=== PATIENT | male | born 1990 | race Caucasian/White ===

== ENCOUNTER 2025-01-01 03:13 | Emergency (ER) | payer BC, SELFPAY ==
[2025-01-01 03:15] VITALS: BP 145/104
[2025-01-01 03:34] VITALS: BMI 28.1
[2025-01-01 03:56] LABS: % Basophils 0.8 % (0-2); % Eosinophils 2.5 % (0-6); % Immature Granulocytes 0.3 % (0-0.5); % Lymphocytes 29.5 % (20.5-51.1); % Monocytes 9.3 % (1.7-9.3); % Neutrophils 57.6 % (42.2-75.2); Absolute Basophils 0.1 10^3/uL (0-0.2); Absolute Eosinophils 0.2 10^3/uL (0-0.7); Absolute Lymphocytes 1.8 10^3/uL (1.2-3.4); Absolute Monocytes 0.6 10^3/uL (0.1-0.6); Absolute Neutrophils 3.5 10^3/uL (1.4-6.5); Hematocrit 44.4 % (39.0-52.0); Hemoglobin 16.3 g/dL (13.0-18.0); Mean Corp Hgb Conc. 36.7 g/dL (33.0-37.0); Mean Corpuscular Hgb 30.9 pg (27.0-31.0); Mean Corpuscular Volume 84.1 fL (80.0-94.0); Mean Platelet Volume 8.8 fL (7.4-10.4); Nucleated Red Blood Cells % 0 % (-); Platelet Count 227 10^3/uL (130-400); Red Blood Cell Count 5.28 10^6/uL (4.70-6.10); Red Cell Dist. Width 11.3 % (11.5-14.5); White Blood Cell Count 6.1 10^3/uL (4.8-10.8)
[2025-01-01 04:00] VITALS: BP 127/90
[2025-01-01] MEDS: TORADOL 15 MG IV (04:20)
[2025-01-01 04:22] LABS: ALT (SGPT) 27 U/L (0-50); AST (SGOT) 21 U/L (17-59); Albumin 4.5 g/dl (3.5-5.0); Alkaline Phosphatase 43 U/L (38-126); Blood Urea Nitrogen 14 mg/dl (9-20); Calcium 9.2 mg/dl (8.4-10.2); Carbon Dioxide 25 mmol/L (22-30); Chloride 108 mmol/L (98-107); Estimated Creatinine Clearance > 125 ml/min; Glucose 102 mg/dl (70-99); Potassium 4.3 mmol/L (3.5-5.1); Sodium 142 mmol/L (135-145); Total Bilirubin 0.6 mg/dl (0.2-1.3); Total Protein 7.2 g/dl (6.3-8.2); eGFR > 60.00
[2025-01-01] MEDS: NSS 1000 IV (04:29)
--- NOTE | 2025-01-01 04:31 | ED.GENMED ---
History of Present Illness
<Trell Ham DO - Last Filed: 01/01/25 06:20>
General
Chief Complaint: Abdominal Pain
Source: patient
Time Seen by Provider: 01/01/25 04:11
Nursing documentation reviewed up to this point in time: agreed with
History of Present Illness
History of Present Illness:
Note:
CHIEF COMPLAINT(S)
Abdominal pain.
HISTORY OF PRESENT ILLNESS
The patient is a 34-year-old male presenting with abdominal pain. He reports the onset was earlier this week, with the most intense episode occurring on Thursday night. The pain self-resolved initially, returned on Thursday, and subsided. However, it
recurred last night, awakening him around midnight. The pain is described as 'intense' and located predominantly on the right side of the abdomen, radiating to the testicular region. The patient has no prior history of kidney stones. He reports that
the pain is so severe that he is unable to remain still. He described it as 'one bowel movement or one good urine away from relief.' There is some associated nausea, but no vomiting. He noted the drive to the hospital was particularly painful,
marking 'the worst ride of his life.'
PHYSICAL EXAM
- Abdominal exam: Pain localized to the right-sided abdomen.
Nursing notes reviewed and vital signs reviewed.
PLAN
- Perform blood work and collect a urine sample to evaluate for hematuria.
- Depending on the results, proceed with a computed tomography (CT) scan, either with or without contrast, to assess for kidney stones or other potential causes of abdominal pain.
DIFFERENTIAL DIAGNOSIS
The Differential Diagnosis includes, in no particular order and is not limited to:
- Nephrolithiasis (Kidney stones)
- Cholecystitis
- Urinary tract infection
- Hernia
- Gastroenteritis
- Pancreatitis
- Abdominal aortic aneurysm
- Pyelonephritis
CARE-UPDATE
01/01/25 - 04:38
Patient is resting comfortably. Will recheck.
Review of Systems
<Trell Ham, DO - Last Filed: 01/01/25 06:20>
Review of Systems
Allergies reviewed?: Yes
All Other Systems: ROS reviewed and negative except as documented in HPI and ROS
Constitutional: Reports no symptoms
EENT: Reports no symptoms
Respiratory: Reports no symptoms
Cardiac: Reports no symptoms
ABD/GI: Reports abdominal pain and nausea; Denies vomiting or diarrhea
: Reports no symptoms
Musculoskeletal: Reports no symptoms
Skin: Reports no symptoms
Neurological: Reports no symptoms
Endocrine: Reports no symptoms
Hematologic/Lymphatic: Reports no symptoms
Psychiatric: Reports anxiety
Phy Exam
<Aldo Kwan, DO - Last Filed: 01/03/25 02:56>
Physical Exam
Physical Exam:
On reevaluation patient is comfortable, abdomen soft and nontender
Course
<Trell Ham, DO - Last Filed: 01/01/25 06:20>
Orders/Labs/Results
Orders:
Orders
01/01/25 03:35
Electrocardiogram (*1) Stat
Reason for Study: Abdominal Pain
EKG- Treatment ONCE
01/01/25 03:45
Complete Blood Count/With Diff Urgent
Comprehensive Metabolic Panel Urgent
Lipase Urgent
01/01/25 04:18
Ketorolac [Toradol] 15 mg .ROUTE .STK-MED ONE
01/01/25 04:20
Ketorolac [Toradol] 15 mg IV NOW STA
01/01/25 04:29
0.9% Sodium Chloride 1000 ml [Nss] 1,000 ml IV BOLUS
01/01/25 05:37
Urinalysis Reflex To Culture Urgent
Date Specimen was Collected: 01/01/25
Time Specimen was Collected: 05:36
01/01/25 06:16
CT Abd/pelvis W Iv Cont Urgent
Comment:
Reason For Exam: sharp abdominal pain , RLQ
Abnormal Lab Results
01/01/25
03:45
RDW 11.3 L %
(11.5-14.5)
Chloride 108 H mmol/L
(98-107)
Glucose 102 H mg/dl
(70-99)
01/01/25 03:45
01/01/25 03:45
Vital Signs
Initial and Last Documented VS:
Initial Vital Signs
Temp Pulse Resp BP Pulse Ox
98 F 80 20 145/104 100
01/01/25 03:15 01/01/25 03:15 01/01/25 03:15 01/01/25 03:15 01/01/25 03:15
Last Documented Vital Signs
Temp Pulse Resp BP Pulse Ox
98 F 87 16 128/98 100
01/01/25 03:15 01/01/25 07:14 01/01/25 07:14 01/01/25 07:14 01/01/25 07:14
Rastalt;Aldo Kwan, DO - Last Filed: 01/03/25 02:56>
Orders/Labs/Results
Orders:
Orders
01/01/25 03:35
Electrocardiogram (*1) Stat
Reason for Study: Abdominal Pain
EKG- Treatment ONCE
01/01/25 03:45
Complete Blood Count/With Diff Urgent
Comprehensive Metabolic Panel Urgent
Lipase Urgent
01/01/25 04:18
Ketorolac [Toradol] 15 mg .ROUTE .STK-MED ONE
01/01/25 04:20
Ketorolac [Toradol] 15 mg IV NOW STA
01/01/25 04:29
0.9% Sodium Chloride 1000 ml [Nss] 1,000 ml IV BOLUS
01/01/25 05:37
Urinalysis Reflex To Culture Urgent
Date Specimen was Collected: 01/01/25
Time Specimen was Collected: 05:36
01/01/25 06:16
CT Abd/pelvis W Iv Cont Urgent
Comment:
Reason For Exam: sharp abdominal pain , RLQ
Abnormal Lab Results
01/01/25
03:45
RDW 11.3 L %
(11.5-14.5)
Chloride 108 H mmol/L
(98-107)
Glucose 102 H mg/dl
(70-99)
01/01/25 03:45
01/01/25 03:45
Vital Signs
Initial and Last Documented VS:
Initial Vital Signs
Temp Pulse Resp BP Pulse Ox
98 F 80 20 145/104 100
01/01/25 03:15 01/01/25 03:15 01/01/25 03:15 01/01/25 03:15 01/01/25 03:15
Last Documented Vital Signs
Temp Pulse Resp BP Pulse Ox
98 F 87 16 128/98 100
01/01/25 03:15 01/01/25 07:14 01/01/25 07:14 01/01/25 07:14 01/01/25 07:14
<Trell Ham DO - Last Filed: 01/01/25 06:20>
*Pulse Oximetry
SaO2: 98
Oxygen Mode of Delivery: Room air
Patient hypoxic: no
*Critical Care Note
Total Time (30-74mins, 75-104mins- exclusive of procedures): Not Applicable
<Trell Ham DO - Last Filed: 01/01/25 06:20>
Update Note
Update Note:
Discussed lab work with patient. Though he is pain-free at this point he still requests CT scan. I am in agreement since this is his second visit for similar pain. We did discuss the possibility of not finding anything on CT scan. He is still
undergo the study
<Aldo Kwan, DO - Last Filed: 01/03/25 02:56>
Update Note
Update Note:
Discussed lab work with patient. Though he is pain-free at this point he still requests CT scan. I am in agreement since this is his second visit for similar pain. We did discuss the possibility of not finding anything on CT scan. He is still
undergo the study
8 AM patient comfortable, CT noted abdomen soft and nontender
ED Attending Note
<Trell Ham, DO - Last Filed: 01/01/25 06:20>
-
Portions of this chart may have been created with voice recognition software.� Occasional wrong word or��sound alike� substitutions may have occurred due to the inherent limitations of voice recognition software.
Discharge Plan
Departure
Patient Disposition: Home (Routine Discharge)
Date of Disposition: 01/01/25
Time of Disposition: 08:08
Patient with high blood pressure during this ER visit?: No
Condition: Good
Discharge Problem:
Abdominal pain
Instructions: Abdominal Pain
Prescriptions:
New
ibuprofen 600 mg tablet
600 mg PO Q8H PRN (Reason: Pain) Qty: 20 0RF
Referrals:
UNKNOWN - PT DOES,NOT KNOW [Family Provider]
Activity Restrictions/Additional Instructions:
Tylenol or ibuprofen for pain
Interventions
Interventions:
*Risk Screen - Suicide Last Done: 01/01/25 03:15
*General Assessment Last Done: 01/01/25 03:34
*Neglect/Abuse Screening Last Done: 01/01/25 03:15
*ED- Fall Risk Assessment Last Done: 01/01/25 03:34
*ED COVID-19 Vaccine History Last Done: 01/01/25 03:34
*Nursing Disposition Last Done: 01/01/25 08:40
QG-Rrxotx-Bhbflmiham Assessment Last Done: 01/01/25 03:34
Discharge Date and Time
Discharge Date/Time: 01/01/25 08:44
Print Language: LAO
[2025-01-01 04:58] LABS: Lipase 100 U/L (23-300)
[2025-01-01 05:00] VITALS: BP 126/89
[2025-01-01 06:00] VITALS: BP 126/92
[2025-01-01 06:00] LABS: Urine Albumin Negative (Neg - Trace); Urine Bilirubin Negative (Negative); Urine Character Clear (Clear); Urine Color Yellow; Urine Glucose Negative (Negative); Urine Ketone Negative (Negative); Urine Leukocyte Negative (Negative); Urine Nitrite Negative (Negative); Urine Occult Blood Negative (Negative); Urine Urobilinogen Negative (Neg - 1+); Urine pH 6.5 (5.0-9.0)
[2025-01-01 07:14] VITALS: BP 128/98
== END 2025-01-01 08:44 | disposition home or self-care (01) ==
LOC: EMR 03:13
PROVIDERS: Student in an Organized Health Care Education/Training Program; EMERGENCY PHYSICIAN Emergency Medicine
DX: R10.9 Unspecified abdominal pain (principal); R11.0 Nausea
CPT/HCPCS: 96374; 96361; 99284; 74177; 80053; 81003; 83690; 85025; 93005; Q9967